=== PATIENT | female | born 1995 | race Two or more races ===

== ENCOUNTER 2024-01-28 13:53 | Emergency (ER) | payer MEDICAID, OTHER ==
[~2024-01-28] VITALS: Ht 180.3 cm; Wt 121.0 kg
[2024-01-28 15:32] VITALS: BP 109/66; PULSE 107; RESP 18; TEMP 98.8; O2SAT 97
== END 2024-01-28 16:23 | disposition home or self-care (01) ==
LOC: ER 13:53
DX: O98.111 Syphilis complicating pregnancy, first trimester (principal); Z02.89 Encounter for other administrative examinations; Z3A.11 11 weeks gestation of pregnancy

== ENCOUNTER 2024-06-06 14:31 | Observation (INO) | payer MEDICAID ==
[2024-06-06] MEDS ORDERED: PREN1TAB71 OR (14:44)
== END 2024-06-06 16:07 | disposition home or self-care (01) ==
LOC: LDRP 14:31
PROVIDERS: ADMIT Obstetrics & Gynecology; ATTEND Obstetrics & Gynecology
DX: O36.8330 Maternal care for abnormalities of the fetal heart rate or rhythm, third trimester, not applicable or unspecified (principal); O98.113 Syphilis complicating pregnancy, third trimester; A53.9 Syphilis, unspecified; Z3A.33 33 weeks gestation of pregnancy
CPT/HCPCS: 59025; 76818; 81002; G0378

== ENCOUNTER 2024-06-09 12:18 | Observation (INO) | payer MEDICAID ==
[~2024-06-09 12:18] MED LIST: PREN1TAB71 OR
== END 2024-06-09 14:35 | disposition home or self-care (01) ==
LOC: UNDOADMOB 12:38 → LDRP 12:38
PROVIDERS: ADMIT Obstetrics & Gynecology; ATTEND Obstetrics & Gynecology
DX: O35.8XX0 Maternal care for other (suspected) fetal abnormality and damage, not applicable or unspecified (principal); Z3A.33 33 weeks gestation of pregnancy
CPT/HCPCS: 59025; 76818; 81002; G0378

== ENCOUNTER 2024-06-13 08:00 | Observation (INO) | payer MEDICAID | END 2024-06-13 10:08 | disposition home or self-care (01) | LOC: LDRP 08:00 → UNDOADMOB 08:00 → LDRP 08:42 | PROVIDERS: ADMIT Obstetrics & Gynecology; ATTEND Obstetrics & Gynecology | DX: O60.03 Preterm labor without delivery, third trimester (principal); O28.3 Abnormal ultrasonic finding on antenatal screening of mother; Z3A.33 33 weeks gestation of pregnancy | CPT/HCPCS: 59025; 76818; 81002; 94760; G0378 ==

== ENCOUNTER 2024-06-16 11:35 | Observation (INO) | payer MEDICAID | END 2024-06-16 14:35 | disposition home or self-care (01) | LOC: LDRP 11:35 → UNDOADMOB 11:35 → LDRP 13:17 | PROVIDERS: ADMIT Obstetrics & Gynecology; ATTEND Obstetrics & Gynecology | DX: O24.419 Gestational diabetes mellitus in pregnancy, unspecified control (principal); O35.9XX0 Maternal care for (suspected) fetal abnormality and damage, unspecified, not applicable or unspecified; Z3A.34 34 weeks gestation of pregnancy | CPT/HCPCS: 59025; 76818; 81002; 94760; G0378 ==

== ENCOUNTER 2024-06-20 08:05 | Observation (INO) | payer MEDICAID | END 2024-06-20 09:21 | disposition home or self-care (01) | LOC: UNDOADMOB 08:05 → LDRP 08:05 → UNDODISOB 09:21 | PROVIDERS: ADMIT Obstetrics & Gynecology; ATTEND Obstetrics & Gynecology | DX: O09.33 Supervision of pregnancy with insufficient antenatal care, third trimester (principal); Z3A.34 34 weeks gestation of pregnancy | CPT/HCPCS: 59025; 76818; 81002; 94760; G0378 ==

== ENCOUNTER 2024-06-23 07:41 | Observation (INO) | payer MEDICAID | END 2024-06-23 08:50 | disposition home or self-care (01) | LOC: LDRP 07:41 → UNDOADMOB 07:41 → LDRP 07:48 → UNDODISOB 08:50 | PROVIDERS: ADMIT Obstetrics & Gynecology; ATTEND Obstetrics & Gynecology | DX: O35.8XX0 Maternal care for other (suspected) fetal abnormality and damage, not applicable or unspecified (principal); O98.113 Syphilis complicating pregnancy, third trimester; A53.9 Syphilis, unspecified; Z3A.35 35 weeks gestation of pregnancy | CPT/HCPCS: 59025; 76818; 81002; G0378 ==

== ENCOUNTER 2024-06-27 08:13 | Observation (INO) | payer MEDICAID | END 2024-06-27 09:50 | disposition home or self-care (01) | LOC: LDRP 08:13 → UNDOADMOB 08:13 → LDRP 08:17 | PROVIDERS: ADMIT Obstetrics & Gynecology; ATTEND Obstetrics & Gynecology | DX: O42.913 Preterm premature rupture of membranes, unspecified as to length of time between rupture and onset of labor, third trimester (principal); O09.33 Supervision of pregnancy with insufficient antenatal care, third trimester; Z3A.35 35 weeks gestation of pregnancy | CPT/HCPCS: 59025; 76818; 81002; 94760; G0378 ==

== ENCOUNTER 2024-06-30 10:22 | Observation (INO) | payer MEDICAID | END 2024-06-30 11:40 | disposition home or self-care (01) | LOC: UNDOADMOB 10:22 → LDRP 10:22 → UNDODISOB 11:40 | PROVIDERS: ADMIT Obstetrics & Gynecology; ATTEND Obstetrics & Gynecology | DX: O36.8330 Maternal care for abnormalities of the fetal heart rate or rhythm, third trimester, not applicable or unspecified (principal); Z3A.36 36 weeks gestation of pregnancy | CPT/HCPCS: 59025; 76818; 81002; G0378 ==

== ENCOUNTER 2024-07-04 08:09 | Observation (INO) | payer MEDICAID | END 2024-07-04 09:34 | disposition home or self-care (01) | LOC: LDRP 08:09 | PROVIDERS: ADMIT Obstetrics & Gynecology; ATTEND Obstetrics & Gynecology | DX: O36.8330 Maternal care for abnormalities of the fetal heart rate or rhythm, third trimester, not applicable or unspecified (principal); O24.419 Gestational diabetes mellitus in pregnancy, unspecified control; Z3A.36 36 weeks gestation of pregnancy | CPT/HCPCS: 59025; 76818; 81002; 94760; G0378 ==

== ENCOUNTER 2024-07-07 09:38 | Observation (INO) | payer MEDICAID | END 2024-07-07 11:21 | disposition home or self-care (01) | LOC: UNDOADMOB 09:38 → LDRP 09:38 → UNDODISOB 11:21 | PROVIDERS: ADMIT Obstetrics & Gynecology; ATTEND Obstetrics & Gynecology | DX: O98.113 Syphilis complicating pregnancy, third trimester (principal); O35.9XX0 Maternal care for (suspected) fetal abnormality and damage, unspecified, not applicable or unspecified; Z3A.37 37 weeks gestation of pregnancy | CPT/HCPCS: 59025; 76818; 81002; 94760; G0378 ==

== ENCOUNTER 2024-07-11 08:00 | Observation (INO) | payer MEDICAID | END 2024-07-11 09:56 | disposition home or self-care (01) | LOC: LDRP 08:00 | PROVIDERS: ADMIT Obstetrics & Gynecology; ATTEND Obstetrics & Gynecology | DX: O09.33 Supervision of pregnancy with insufficient antenatal care, third trimester (principal); Z3A.37 37 weeks gestation of pregnancy | CPT/HCPCS: 59025; 76818; 81002; 94760; G0378 ==

== ENCOUNTER 2024-07-14 08:11 | Observation (INO) | payer MEDICAID | END 2024-07-14 09:29 | disposition home or self-care (01) | LOC: LDRP 08:11 → UNDOADMOB 08:11 → LDRP 08:27 → UNDODISOB 09:29 | PROVIDERS: ADMIT Obstetrics & Gynecology; ATTEND Obstetrics & Gynecology | DX: O36.0130 Maternal care for anti-D [Rh] antibodies, third trimester, not applicable or unspecified (principal); Z3A.38 38 weeks gestation of pregnancy | CPT/HCPCS: 59025; 76818; 81002; 94760; G0378 ==

== ENCOUNTER 2024-07-18 07:51 | Observation (INO) | payer MEDICAID ==
[~2024-07-18] VITALS: Ht 177.8 cm; Wt 275.0 kg
== END 2024-07-18 09:17 | disposition home or self-care (01) ==
LOC: LDRP 07:51
PROVIDERS: ADMIT Obstetrics & Gynecology; ATTEND Obstetrics & Gynecology
DX: O98.113 Syphilis complicating pregnancy, third trimester (principal); O62.9 Abnormality of forces of labor, unspecified; Z3A.38 38 weeks gestation of pregnancy
CPT/HCPCS: 59025; 76818; 81002; 94760; G0378

== ENCOUNTER 2024-07-21 07:51 | Observation (INO) | payer MEDICAID | END 2024-07-21 09:22 | disposition home or self-care (01) | LOC: LDRP 07:51 | PROVIDERS: ADMIT Obstetrics & Gynecology; ATTEND Obstetrics & Gynecology | DX: O36.8330 Maternal care for abnormalities of the fetal heart rate or rhythm, third trimester, not applicable or unspecified (principal); O26.893 Other specified pregnancy related conditions, third trimester; N89.8 Other specified noninflammatory disorders of vagina; O99.323 Drug use complicating pregnancy, third trimester; F12.90 Cannabis use, unspecified, uncomplicated; Z3A.39 39 weeks gestation of pregnancy | CPT/HCPCS: 59025; 76818; 81002; G0378 ==

== ENCOUNTER 2024-07-23 07:47 | Observation (INO) | payer MEDICAID | END 2024-07-23 09:21 | disposition home or self-care (01) | LOC: LDRP 07:47 | PROVIDERS: ADMIT Obstetrics & Gynecology; ATTEND Obstetrics & Gynecology | DX: O36.1930 Maternal care for other isoimmunization, third trimester, not applicable or unspecified (principal); O62.9 Abnormality of forces of labor, unspecified; O99.323 Drug use complicating pregnancy, third trimester; F12.90 Cannabis use, unspecified, uncomplicated; Z3A.39 39 weeks gestation of pregnancy | CPT/HCPCS: 59025; 76818; 81002; 94760; G0378 ==

== ENCOUNTER 2024-07-26 09:19 | Observation (INO) | payer MEDICAID | END 2024-07-26 10:46 | disposition home or self-care (01) | LOC: LDRP 09:19 | PROVIDERS: ADMIT Obstetrics & Gynecology; ATTEND Obstetrics & Gynecology | DX: O48.0 Post-term pregnancy (principal); Z3A.40 40 weeks gestation of pregnancy | CPT/HCPCS: 59025; 76818; 81002; G0378 ==

== ENCOUNTER 2024-07-28 08:06 | Observation (INO) | payer MEDICAID | END 2024-07-28 09:43 | disposition home or self-care (01) | LOC: UNDOADMOB 08:06 → LDRP 08:06 | PROVIDERS: ADMIT Obstetrics & Gynecology; ATTEND Obstetrics & Gynecology | DX: O48.0 Post-term pregnancy (principal); O99.323 Drug use complicating pregnancy, third trimester; F12.90 Cannabis use, unspecified, uncomplicated; Z3A.40 40 weeks gestation of pregnancy | CPT/HCPCS: 59025; 76818; 81002; 94760; G0378 ==

== ENCOUNTER 2024-07-30 07:50 | Observation (INO) | payer MEDICAID | END 2024-07-30 09:18 | disposition home or self-care (01) | LOC: LDRP 08:04 | PROVIDERS: ADMIT Obstetrics & Gynecology; ATTEND Obstetrics & Gynecology | DX: O48.0 Post-term pregnancy (principal); O26.893 Other specified pregnancy related conditions, third trimester; N89.8 Other specified noninflammatory disorders of vagina; Z3A.40 40 weeks gestation of pregnancy | CPT/HCPCS: 59025; 76818; 81002; 94760; G0378 ==

== ENCOUNTER 2024-08-01 07:12 | Inpatient (IN) | payer MEDICAID ==
[~2024-08-01] VITALS: Ht 180.3 cm; Wt 131.1 kg
[2024-08-01] MEDS: ROPIVACAINE HCL 200 ML ONE (00:05)
[2024-08-01] MEDS: LACT. RINGERS/OXYTOCIN 20UNITS 500 ML IV ONE (01:45)
[2024-08-01] MEDS ORDERED: LIDOCAINE 2%HCL (LOCAL ANESTH.) INJ 20ML MDV IJ PRN (07:30)
[2024-08-01] MEDS ORDERED: BUTORPHANOL TARTRATE 2 MG/1 ML VIAL IV PRN ×2 (07:30)
[2024-08-01 08:17] LABS: Basophils # (auto) 0 10 ^3/uL (0-0.2); Basophils % (auto) 0.2 % (0.0-2.0); Eosinophils # (auto) 0.1 10 ^3/uL (0-0.8); Eosinophils % (auto) 0.5 % (0.0-7.0); Hematocrit 31.3 % (36.0-46.0); Hemoglobin 10.9 g/dL (12.2-16.2); Lymphocytes % (auto) 19.4 % (10.0-50.0); Mean Corpuscular Hemoglobin 28.6 pg (28.0-32.0); Mean Corpuscular Hgb Conc. 34.7 g/dL (32.0-36.0); Mean Corpuscular Volume 82.5 fL (80.0-100.0); Monocytes # (auto) 0.6 10 ^3/uL (0-1.3); Monocytes % (auto) 5.4 % (0.0-12.0); Neutrophils # (auto) 7.7 10 ^3/uL (1.6-8.6); Neutrophils % (auto) 74.5 % (37.0-80.0); Platelet Count (auto) 232 10^3/uL (140-450); White Blood Cell 10.3 10^3/uL (4.4-10.8)
[2024-08-01 08:38] LABS: Alanine Aminotransferase 14 U/L (7-40); Albumin 3.9 g/dL (3.2-4.8); Alkaline Phosphatase 128 U/L (46-116); Anion Gap 7 (5-15); Aspartate Aminotransferase < 8 U/L (13-40); BUN/Creatinine Ratio 10.2 (10.0-20.0); Bilirubin, Total 0.3 mg/dL (0.2-1.0); Blood Urea Nitrogen 6 mg/dL (9-23); Calcium 9.2 mg/dL (8.7-10.4); Carbon Dioxide 25 mmol/L (20-30); Chloride 106 mmol/L (98-107); Glucose 93 mg/dL (74-106); Potassium 3.8 mmol/L (3.5-5.1); Sodium 138 mmol/L (136-145); Total Protein 6.6 g/dL (5.7-8.2)
[2024-08-01 08:50] LABS: INR 0.95 (0.9-1.15); Partial Thromboplastin Time 29.3 SEC (24.5-34.5); Prothrombin Time 10.3 sec (9.3-11.8)
[2024-08-01 09:02] LABS: Urine Bacteria None Seen /hpf (None Seen)
[2024-08-01 09:29] LABS: Urine Blood Negative /uL (Negative); Urine Clarity Clear (Clear); Urine Color Light-Yellow (Yellow); Urine Protein, UAD Negative (Negative); Urine Urobilinogen Normal (Negative); Urine WBC 1 /hpf (0 - 5); Urine pH 6.5 (5.0-9.0)
[2024-08-01 09:52] LABS: Amphetamine Screen, Urine Neg (NEGATIVE)
[2024-08-01 09:54] LABS: Barbiturate Scree,Urine Neg (NEGATIVE); Benzodiazephine Screen, Urine Neg (NEGATIVE); Cannabinoid Screen, Urine Neg (NEGATIVE); Cocaine Screen, Urine Neg (NEGATIVE); Opiate Scree,Urine Neg (NEGATIVE); Phencyclidine Screen, Urine Neg (NEGATIVE)
[2024-08-01] MEDS: miSOPROStol 50 MCG per PRE-CUT 1/2 TAB PO ONE (09:55)
[2024-08-01] MEDS: LACTATED RINGER'S 1,000 ML IV SCH (09:58)
[2024-08-01] MEDS: miSOPROStol 50 MCG per PRE-CUT 1/2 TAB PO PRN (14:26)
[2024-08-01] MEDS: DERMOPLAST 60ML BOTTLE TOP PRN (15:36)
[2024-08-01] MEDS: PHISODERM TOP SOLN 240ML BTL TOP PRN (15:36)
[2024-08-01] MEDS: WITCH HAZEL-GLYCERIN PAD TOP PRN (15:36)
[2024-08-01] MEDS ORDERED: ePHEDrine SULFATE 50 MG/ML AMP IV ONE (23:30)
[2024-08-02] MEDS ORDERED: ONDANSETRON ODT 4 MG TAB PO PRN (14:15)
[2024-08-02] MEDS: IBUPROFEN 600 MG TAB PO PRN (17:09)
[2024-08-02] MEDS: ePHEDrine SULFATE 50 MG/ML AMP ONE (17:10)
[2024-08-02] MEDS: LACT. RINGERS/OXYTOCIN 20UNITS 500 ML IV ONE (17:23)
[2024-08-02 19:30] VITALS: BP 121/58; PULSE 75; RESP 16; TEMP 98.3; O2SAT 98
[2024-08-02] MEDS: ACETAMINOPHEN 325 MG TAB PO PRN (20:26)
[2024-08-02] MEDS ORDERED: ASCO500T11 PO (21:43)
[2024-08-02] MEDS ORDERED: FER325T PO (21:43)
[2024-08-02] MEDS ORDERED: PREN1TAB71 PO (21:43)
[2024-08-02] MEDS ORDERED: DOCU-94 PO (21:43)
[2024-08-02] MEDS ORDERED: IBU600T PO (21:43)
[2024-08-02 23:30] VITALS: BP 105/58; PULSE 72; RESP 18; TEMP 97.8; O2SAT 97
[2024-08-03 03:00] VITALS: BP 105/63; PULSE 65; RESP 16; TEMP 97.7; O2SAT 98
[2024-08-03 07:00] VITALS: BP 116/59; PULSE 77; RESP 17; TEMP 98; O2SAT 98
[2024-08-03 08:15] LABS: Basophils # (auto) 0 10 ^3/uL (0-0.2); Basophils % (auto) 0.2 % (0.0-2.0); Eosinophils # (auto) 0.1 10 ^3/uL (0-0.8); Eosinophils % (auto) 0.6 % (0.0-7.0); Hematocrit 31.7 % (36.0-46.0); Lymphocytes # (auto) 2.3 10 ^3/uL (0.4-5.4); Mean Corpuscular Hemoglobin 27.1 pg (28.0-32.0); Mean Corpuscular Hgb Conc. 31.7 g/dL (32.0-36.0); Mean Corpuscular Volume 85.7 fL (80.0-100.0); Monocytes # (auto) 0.7 10 ^3/uL (0-1.3); Monocytes % (auto) 7.5 % (0.0-12.0); Neutrophils # (auto) 6.5 10 ^3/uL (1.6-8.6); Neutrophils % (auto) 67.7 % (37.0-80.0); Platelet Count (auto) 195 10^3/uL (140-450); Red Cell Distribution Width 16.5 % (11.8-14.3); White Blood Cell 9.6 10^3/uL (4.4-10.8)
[2024-08-03 10:52] VITALS: BP 102/62; PULSE 67; RESP 16; TEMP 97.7; O2SAT 99
== END 2024-08-03 15:20 | disposition home or self-care (01) | DRG 560 ==
LOC: LDRP 07:12 → UNDOADMIN 07:12 → LDRP 07:32
PROVIDERS: ADMIT Obstetrics & Gynecology; ATTEND Nurse Practitioner Women's Health
PROC: 10E0XZZ Delivery of Products of Conception, External Approach (ICD-10-PCS; principal; 2024-08-02)
PROC: 0KQM0ZZ Repair Perineum Muscle, Open Approach (ICD-10-PCS; 2024-08-02)
PROC: 3E0R3BZ Introduction of Anesthetic Agent into Spinal Canal, Percutaneous Approach (ICD-10-PCS; 2024-08-02)
PROC: 00HU33Z Insertion of Infusion Device into Spinal Canal, Percutaneous Approach (ICD-10-PCS; 2024-08-02)
DX: O48.0 Post-term pregnancy (principal); Z37.0 Single live birth; O70.1 Second degree perineal laceration during delivery; Z3A.40 40 weeks gestation of pregnancy; O99.013 Anemia complicating pregnancy, third trimester
CPT/HCPCS: 36415; 59025; 59409; 80053; 80307; 81001; 84112; 85025; 85610; 85730; 86592; 86850; 86900; 86901; 94760; 96360; 96361; 96365; 96366; G0378; J2590